=== PATIENT | male | born 1995 | race Caucasian/White ===

== ENCOUNTER 2017-04-24 03:27 | Emergency (ER) | payer SELFPAY ==
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
[2017-04-24] MEDS ORDERED: DOPAMINE HCL/DEXTROSE 5%-WATER 800 MG/250 ML RTUINJ IV ONE (04:03)
[2017-04-24] MEDS ORDERED: NORMAL SALINE 1000 ML 1,000 ML IV ONE (04:03)
[2017-04-24] MEDS ORDERED: DOPAMINE HCL/DEXTROSE 5%-WATER 250 ML IV PRN (04:07)
[2017-04-24] MEDS ORDERED: ALBUTEROL SULFATE 0.083% NEB 2.5 MG/3 ML AMPUL NEB ONE (04:09)
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
[2017-04-24 04:11] LABS: ALANINE AMINOTRANSFERASE 105 U/L (21-72); ALBUMIN 4.6 g/dL (3.5-5.0); ALCOHOL 232 mg/dL (NONE DETECTED); ALKALINE PHOSPHATASE 140 U/L (38-126); ASPARTATE AMINO TRANSFERASE 157 U/L (17-59); BILIRUBIN,DIRECT 0.4 mg/dL (0.0-0.4); BILIRUBIN,TOTAL 0.7 mg/dL (0.2-1.3); BLOOD UREA NITROGEN 18 mg/dL (7-20); CALCIUM 8.5 mg/dL (8.4-10.2); CARBON DIOXIDE 20 mmol/L (22-30); CHLORIDE 111 mmol/L (98-107); CREATININE RESULT 1.22 mg/dL (0.52-1.25); GLUCOSE 246 mg/dL (75-110); POTASSIUM 3.6 mmol/L (3.6-5.0); TOTAL PROTEIN 7.6 g/dL (6.3-8.2)
[2017-04-24 04:18] LABS: ABSOLUTE BASOPHILS # (AUTO) 0.1 10^3/uL (0.0-0.2); ABSOLUTE EOSINOPHILS # (AUTO) 0.2 10^3/uL (0.0-0.6); ABSOLUTE LYMPHOCYTES (AUTO) 7.2 10^3/uL (0.5-4.7); ABSOLUTE MONOCYTES (AUTO) 0.6 10^3/uL (0.1-1.4); ABSOLUTE NEUT (AUTO) 10.5 10^3/uL (1.7-8.2); BASOPHILS % (AUTO) 0.4 % (0-2); EOSINOPHILS % (AUTO) 1.2 % (0-6); HEMATOCRIT 47.5 % (37.9-51.0); HGB HCT DIFFERENCE -2.5; LYMPHOCYTES % (AUTO) 38.7 % (13-45); MEAN CORPUSCULAR HEMOGLOBIN 29.6 pg (27.0-33.4); MEAN CORPUSCULAR HGB CONC 31.5 g/dL (32.0-36.0); MEAN CORPUSCULAR VOLUME 94 fl (80-97); MONOCYTES % (AUTO) 3.3 % (3-13); RED BLOOD COUNT 5.06 10^6/uL (4.35-5.55); RED CELL DISTRIBUTION WIDTH 13.9 % (11.5-14.0); SEGMENTED NEUTROPHILS % (AUTO) 56.4 % (42-78); WHITE BLOOD COUNT 18.6 10^3/uL (4.0-10.5)
[2017-04-24 04:23] LABS: ANION GAP 19 (5-19); SODIUM 150.3 mmol/L (137-145)
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
--- NOTE | 2017-04-24 05:49 | RADIOLOGY REPORT (SQ) ---
EXAM DESCRIPTION: CHEST SINGLE VIEW COMPLETED DATE/TIME: 04/24/2017 5:25 am REASON FOR STUDY: CHEST TUBE PLACEMENT COMPARISON: None. EXAM PARAMETERS: NUMBER OF VIEWS: One view. TECHNIQUE: Single frontal radiographic view of the chest acquired. RADIATION DOSE: NA LIMITATIONS: None. FINDINGS: LUNGS AND PLEURA: Small left effusion, small left peripheral contusion correlated with CT. Lucency of the right costophrenic angle consistent with minimal right pneumothorax. No significant residual pneumothorax on the left. MEDIASTINUM AND HILAR STRUCTURES: No masses. Contour normal. HEART AND VASCULAR STRUCTURES: Heart normal in size. Normal vasculature. BONES: Left rib fractures. Bilateral scapular fractures. Left mid clavicular fractures. Minimal T8 right paracentral- anterior compression deformity. HARDWARE: Adequate appearing endotracheal tube. Left-sided chest tube. OTHER: No other significant finding. IMPRESSION: Minimal right pneumothorax. No significant left pneumothorax discerned. Endotracheal/c hest tubes. Otherwise, stable. TECHNICAL DOCUMENTATION: JOB ID: [id number]
[2017-04-24 05:56] VITALS: BP 95/52
== END 2017-04-24 06:05 | disposition short-term general hospital (02) ==
LOC: EDBD 03:27 → MERGE 03:27 → ER 03:27
PROC: 0W9B00Z Drainage of Left Pleural Cavity with Drainage Device, Open Approach (ICD-10-PCS; principal; 2017-04-24)
PROC: 0BH17EZ Insertion of Endotracheal Airway into Trachea, Via Natural or Artificial Opening (ICD-10-PCS; 2017-04-24)
DX: S06.5X9A Traumatic subdural hemorrhage with loss of consciousness of unspecified duration, initial encounter (principal); S27.2XXA Traumatic hemopneumothorax, initial encounter; S22.078A Other fracture of T9-T10 vertebra, initial encounter for closed fracture; S22.42XA Multiple fractures of ribs, left side, initial encounter for closed fracture; S42.19 Fracture of other part of scapula; S42.022A Displaced fracture of shaft of left clavicle, initial encounter for closed fracture; V59.9XXA Occupant (driver) (passenger) of pick-up truck or van injured in unspecified traffic accident, initial encounter
CPT/HCPCS: 99291; 51702; 96374; 86900; 86901; 36415; 36430; 86850; 82962; 80307; 85025; 85610; 80053; 86920; 71010; 70450; 70486; 71260; 72125; 74177; 32551; 31500; P9016